=== PATIENT | male | born 1985 | race Caucasian/White ===

== ENCOUNTER 2017-05-25 00:43 | Emergency (ER) | payer BC ==
[~2017-05-25] VITALS: Ht 167.6 cm; Wt 68.5 kg
[~2017-05-25 00:43] MED LIST: ERYTOPOI LEFT EYE
[2017-05-25 00:53] VITALS: Ht 167.6 cm; Wt 68.5 kg
--- NOTE | 2017-05-25 01:19 | ERD ---
ER Documentation Chief Complaint Date/Time DATE: 05/25/17 TIME: 01:16 Chief Complaint PT REPORTS HE BELIEVES HE CAME INTO CONTACT SUMNE[place] HPI 32-year-old male presents emergency department for generalized weakness, paleness, hives, rashes to chest and back, bilateral upper extremities. 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 Denies headache, loss of consciousness, dizziness, blurry vision, changes in vision, photophobia, facial pain, ear pain, throat pain, difficulty swallowing, neck pain, shoulder pain, chest pain, cough, hemoptysis, abdominal pain, back pain, loss of appetite, nausea, vomiting, hematochezia, diarrhea, constipation, urinary symptoms, bladder and bowel incontinences, extremity weakness, extremity tenderness, numbness or tingling sensation, difficulty walking, recent travel, recent exposure to illness, recent antibiotic use in the last 3 months, fever, chills. No known drug allergies. No past medical history. Surgical history of ACL surgery. Not taking any prescription medication at home. Social history: Works at [employer]. Occasional drinks alcoholic beverages. Denies smoking, use of illegal drugs. ROS All systems reviewed and are negative except as per history of present illness. Medications Home Meds Active Scripts Hydrocortisone* Topical (Hydrocortisone* Topical) 1%-28.35 Gm Cream..g., 1 APPLIC TOP Q6 Y for ITCHING, #1 TUB Prov:DIAMOND BELLO 05/25/17 Loratadine* (Claritin*) 10 Mg Capsule, 10 MG PO DAILY for 10 Days, CAP Prov:PASILABANDIAMOND 05/25/17 Famotidine* (Pepcid*) 20 Mg Tablet, 20 MG PO DAILY for 5 Days, TAB Prov:PASILADIAMOND BERMAN 05/25/17 Diphenhydramine Hcl* (Benadryl*) 50 Mg Cap, 50 MG PO Q8 Y for ITCHING/RASH, #30 CAP Prov:PASILADIAMOND BERMAN 05/25/17 Prednisone* (Prednisone*) 20 Mg Tab, 40 MG PO DAILY for 5 Days, TAB Prov:PASILADIAMOND BERMAN 05/25/17 Erythromycin* (Erythromycin* Ophthalmic) 1 Applic Oint, 1 APPLIC LEFT EYE QID for 7 Days, TUB Prov:VERO HUDSON MD 10/03/15 Allergies Allergies: Coded Allergies: No Known Allergy (Verified Allergy, Unknown, 06/11/07) PMhx/Soc History of Surgery: Yes (ACL RECONSTRUCTION) Anesthesia Reaction: No Hx Neurological Disorder: No Hx Respiratory Disorders: No Hx Cardiac Disorders: No Hx Psychiatric Problems: No Hx Miscellaneous Medical Probl: No Hx Alcohol Use: Yes (SOCIAL/OOC) Hx Substance Use: No Hx Tobacco Use: No Physical Exam Vitals Vital Signs Date Time Temp Pulse Resp B/P Pulse Ox O2 Delivery O2 Flow Rate FiO2 05/25/17 05:04 89 18 124/81 99 Room Air 05/25/17 03:31 87 18 115/70 98 Room Air 05/25/17 00:53 98.3 92 18 135/76 100 Physical Exam CONSTITUTIONAL: Well-appearing; well-nourished; in no apparent distress. HEAD: Normocephalic; atraumatic. EYES: Conjunctiva clear, sclera non-icteric, EOM intact. PERRLA. Ears: Hearing intact. EACs clear, TMs non-bulging, non-inflamed, translucent & mobile, ossicles normal appearance, No obstructions, no erythema, no discharges Nose: No obstructions. No polyps. No external lesions. Mucosa non-inflamed. No external lesions, septum and turbinates normal. No rhinorrhea. No discharges. Frontal sinus is non-tender to palpation. Maxillary sinus is non-tender to palpation. MOUTH: Moist mucous membranes, no lesion, no obstructions, no vesicles, no thrush, patent airway Throat: Uvula in midline. Right tonsil is +1 with no erythema, no exudate. Left tonsil is +1 with no erythema, no exudate. Tolerating secretions well. Good gag reflex. Patent airway. Able to control tongue. Patent airway. Neck: Supple, without lesions, bruits, or adenopathy. No mass. Thyroid non- enlarged and non-tender to palpation. CHEST: Symmetrical chest. Respirations even and not labored. No retractions noted. CARDIOVASCULAR: Normal S1, S2. RRR. No murmurs, gallops. RESPIRATORY: Normal chest excursion with respiration; breath sounds clear and equal bilaterally; no wheezes, rhonchi, or rales. Breathing even and unlabored. Speaking in clear, full, and complete sentences w/ ease. ABDOMEN: Normal bowel sounds normal. Soft, round, non-distended, non-guarding, no tenderness, no rebound, no organomegaly, no masses, no pulsating abdominal mass. No hernia. No peritoneal signs. : No CVA tenderness. BACK: Symmetrical shoulder. Spine is midline without deformity, tenderness. No evidence of trauma or deformity. PELVIS: Stable pelvis. No evidence of trauma or deformity. MUSCULOSKELETAL: Normal gait and station. No misalignment, asymmetry, crepitation, defects, tenderness, masses, effusions, decreased range of motion, instability, atrophy or abnormal strength or tone in the head, neck, spine, ribs , pelvis or extremities. No calf tenderness. NEUROVASCULAR: Distal pulses are present. Pedal pulse are present, equal, and normal. Capillary refills are < 2 seconds. NEUROLOGIC: Alert and oriented x4. Speaks full and clear sentences. Cranial Nerves II-XII normal. Sensation to pain, touch, and proprioception normal. Grossly unremarkable. No neurologic deficits. Romberg test is negative. PSYCHOLOGICAL: The patients mood and manner are appropriate. No hallucinations , delusions. Not SI. Not HI. Has the capacity to decide for self SKIN: Normal for age and ethnicity; warm; dry; good turgor; no apparent lesions or exudates. No vesicular lesions. Intact. Facial paleness. Rashes and hives to chest, back, bilateral upper extremities. Result Diagram: 05/25/17 01405/25/17 0142 Results 24 hrs Laboratory Tests Test 05/25/17 01:42 White Blood Count 14.710^3/ul Red Blood Count 5.0510^6/ul Hemoglobin 15.8g/dl Hematocrit 45.7% Mean Corpuscular Volume 90.5fl Mean Corpuscular Hemoglobin 31.3pg Mean Corpuscular Hemoglobin Concent 34.6g/dl Red Cell Distribution Width 11.7% Platelet Count 28451^3/UL Mean Platelet Volume 10.3fl Neutrophils % 85.1% Lymphocytes % 8.3% Monocytes % 5.9% Eosinophils % 0.1% Basophils % 0.1% Nucleated Red Blood Cells % 0.0/100WBC Neutrophils # 12.510^3/ul Lymphocytes # 1.210^3/ul Monocytes # 0.910^3/ul Eosinophils # 0.010^3/ul Basophils # 0.010^3/ul Nucleated Red Blood Cells # 0.010^3/ul Sodium Level 137mmol/L Potassium Level 3.6mmol/L Chloride Level 98mmol/L Carbon Dioxide Level 27mmol/L Anion Gap 16 Blood Urea Nitrogen 19mg/dl Creatinine 1.16mg/dl Glucose Level 139mg/dl Calcium Level 9.5mg/dl Total Bilirubin 0.8mg/dl Direct Bilirubin 0.00mg/dl Indirect Bilirubin 0.8mg/dl Aspartate Amino Transf (AST/SGOT) 23IU/L Alanine Aminotransferase (ALT/SGPT) 24IU/L Alkaline Phosphatase 55IU/L Total Protein 7.9g/dl Albumin 5.1g/dl Globulin 2.80g/dl Albumin/Globulin Ratio 1.82 Current Medications Medications (Trade) Dose Ordered Sig/Franck Route PRN Reason Start Time Stop Time Status Last Admin Dose Admin Methylprednisolone Sodium Succinate (Solu-Medrol) 125 mg ONCE ONCE IV 05/25/17 01:30 05/25/17 01:31 DC 05/25/17 01:31 Famotidine (Pepcid Iv) 40 mg ONCE ONCE IV 05/25/17 01:30 05/25/17 01:31 DC 05/25/17 01:31 Diphenhydramine HCl 25 mg 25 mg ONCE ONCE IV 05/25/17 01:30 05/25/17 01:31 DC 05/25/17 01:31 Sodium Chloride (NS) 1,000 ml @ 1,000 mls/hr Q1H ONCE IV 05/25/17 01:30 05/25/17 02:29 DC 05/25/17 01:31 Miscellaneous Medication 40 ml 40 ml ONCE ONCE PO 05/25/17 03:30 05/25/17 03:31 Cancel Sodium Chloride (NS) 1,000 ml @ 1,000 mls/hr Q1H ONCE IV 05/25/17 03:30 05/25/17 04:29 DC 05/25/17 03:41 Diphenhydramine HCl (Benadryl) 25 mg ONCE ONCE IV 05/25/17 04:00 05/25/17 04:01 DC 05/25/17 03:44 Procedures/MDM Examination: Please see physical examination. Disease process, medical treatment was explained to the patient and family member. They verbalized understanding and agreed with the diagnostic tests, medical treatment, and follow-up care. Blood works: Unremarkable. Treatment: IV insertion. Solu-Medrol IV. Benadryl IV. Pepcid IV. Normal saline 1 L bolus 2. With improvement. Re-evaluation: Denies headache, dizziness, blurry vision, neck pain, throat pain , throat tightness, chest tightness, shoulder pain, chest pain, back pain, abdominal pain, nausea, vomiting. Uvula is in midline and not displaced. Tolerating secretions. No episode of emesis in the emergency department. Alert and oriented 4. Speaks full and clear sentences. Respirations even and unlabored. Lung sounds clear to auscultation. Active bowel sounds. There is no right upper/right lower/epigastric/left upper/left lower abdominal tenderness and light and deep palpation. Negative on Rovsings sign. Negative Cr sign. Able to jump 5 times without developing right-sided abdominal pain. No peritoneal signs. Ambulatory with steady gait. No neurovascular deficits. No neurological deficits. Facial area paleness is gone. Normal skin appearance to facial area. Hives and rashes has decreased a lot. Patient stated that he feels much better this time and is ready to go home. Consultation: None. Differential diagnosis: Anaphylaxis versus allergic reaction versus hives versus rashes Medical decision makin-year-old male presents emergency department for generalized weakness, paleness, hives, rashes to chest and back, bilateral upper extremities. 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 Patient's complaint, patient 's history about his complaint, my physical findings are consistent my final diagnosis of allergic reaction. Case was discussed with supervising emergency room physician, Dr. Viktor Moon who agreed with my medical decision making to discharge the patient with a prescriptions of prednisone. Benadryl. Hydrocortisone cream. Medications prescribed are the following: Benadryl. Prednisone. Hydrocortisone cream. Pepcid. Loratadine. Patient and family member are made aware of the side effects and adverse reactions of the medications prescribed. Instructed on when to seek emergent and medical attention in case allergic/anaphylactic reactions or severe side effects and or adverse reactions to medications. Patient and family member verbalized understanding. Patient instructed Instructed to follow-up with his PCP in 24-48 hours. Patient stated that will make sure to see a primary care physician the next 24-48 hours. Instructed to Call 911 for chest pain, shortness of breath. Advised to come back here in ED as soon as possible for severity of symptoms which includes but not limited to: any new symptoms; shortness of breath/difficulty of breathing; cardiovascular changes; severe gastrointestinal symptoms; signs and symptoms of bleeding and or infection; signs of compartment syndrome/neurovascular changes; neurological changes/deficits. Patient and family member verbalized understanding. Upon discharge, patient is alert and oriented x 4, speaks full and clear sentences, denies pain, has no neurological deficits, has no neurovascular deficits, difficulty of breathing. Breathing even and unlabored. Lung sounds are clear to auscultation. Not in distress. Appears comfortable. Ambulatory with steady gait. Appears satisfied with care provided here in ED. Departure Diagnosis: Primary Impression: Allergic reaction Condition: Good Additional Instructions: Instructed to follow-up with his PCP in 24-48 hours. Patient stated that will make sure to see a primary care physician the next 24-48 hours. Instructed to Call 911 for chest pain, shortness of breath. Advised to come back here in ED as soon as possible for severity of symptoms which includes but not limited to: any new symptoms; shortness of breath/difficulty of breathing; cardiovascular changes; severe gastrointestinal symptoms; signs and symptoms of bleeding and or infection; signs of compartment syndrome/neurovascular changes; neurological changes/deficits. Patient and family member verbalized understanding. DIAMOND BELLO May 25, 2017 01:19
[2017-05-25] MEDS ORDERED: FAMOTIDINE 20 MG INJ IV ONE (01:30)
[2017-05-25] MEDS ORDERED: SOD CHLORIDE 0.9% 1,000 ML IV ONE ×2 (01:30→03:30)
[2017-05-25] MEDS ORDERED: DIPHENHYDRAMINE 50 MG INJ IV ONE ×2 (01:30→04:00)
[2017-05-25] MEDS ORDERED: METHYLPREDNISOLONE 125 MG INJ IV ONE (01:30)
[2017-05-25 02:19] LABS: ADD SCAN DIFF NO
[2017-05-25 02:22] LABS: BASOPHILS % 0.1 % (0.0-2.0); EOSINOPHILS % 0.1 % (0.0-7.0); HEMATOCRIT 45.7 % (42.0-52.0); HEMOGLOBIN 15.8 g/dl (14.0-18.0); LYMPHOCYTES # 1.2 10^3/ul (0.8-2.9); LYMPHOCYTES % 8.3 % (15.0-51.0); MEAN CORPUSCULAR HEMOGLOBIN 31.3 pg (29.0-33.0); MEAN CORPUSCULAR HGB CONC 34.6 g/dl (32.0-37.0); MEAN CORPUSCULAR VOLUME 90.5 fl (82.0-101.0); MEAN PLATELET VOLUME 10.3 fl (7.4-10.4); MONOCYTE # 0.9 10^3/ul (0.3-0.9); MONOCYTES % 5.9 % (0.0-11.0); NEUTROPHIL # 12.5 10^3/ul (1.6-7.5); NEUTROPHILS % 85.1 % (39.0-77.0); PLATELET COUNT 254 10^3/UL (140-415); RED BLOOD COUNT 5.05 10^6/ul (4.70-6.10); RED CELL DISTRIBUTION WIDTH 11.7 % (11.5-14.5); WHITE BLOOD COUNT 14.7 10^3/ul (4.8-10.8)
[2017-05-25 02:52] LABS: ALBUMIN 5.1 g/dl (3.3-4.9); ALBUMIN/GLOBULIN RATIO 1.82; BILIRUBIN,INDIRECT 0.8 mg/dl (0-1.1); BILIRUBIN,TOTAL 0.8 mg/dl (0.2-1.3); CALCIUM 9.5 mg/dl (8.4-10.2); CREATININE 1.16 mg/dl (0.61-1.24); POTASSIUM 3.6 mmol/L (3.5-5.1); TOTAL PROTEIN 7.9 g/dl (6.1-8.1)
[2017-05-25] MEDS ORDERED: LIDOCAINE/MYLANTA 40 ML BTL PO ONE (03:30)
[2017-05-25] MEDS ORDERED: PRED20TA PO (04:30)
[2017-05-25] MEDS ORDERED: BEN50 PO (04:31)
[2017-05-25] MEDS ORDERED: FAMO-96 PO (04:32)
[2017-05-25] MEDS ORDERED: LORA10CA PO (04:33)
[2017-05-25] MEDS ORDERED: HC1C30 TOP (04:33)
[2017-05-25 05:04] VITALS: BP 124/81; PULSE 89; RESP 18
== END 2017-05-25 05:14 | disposition home or self-care (01) ==
LOC: FTE 00:43
DX: L50.9 Urticaria, unspecified (principal)
CPT/HCPCS: 80053; 85025; J1200; J2930; J7030; Z7610; 96374; 96375; 96376